=== PATIENT | male | born 1940 | race Caucasian/White ===

== ENCOUNTER 2019-05-27 09:00 | Outpatient (CLI) | payer OTHER, SELFPAY ==
--- NOTE | 2019-05-27 09:06 | USCV_ITS ---
Arnie Cuevas Age: 78 Gender: M : 1940 Exam Date: 05/27/2019 09:39 Ordering Phys: Dana Pedroza MD ([email or web address]) Technologist: Zari Yañez [place]am [place] [facility] [place]ication: ABNORMAL STRESS TEST BP: 195 / 97 HR: 97 Rhythm: Technical Quality: Adequate MEASUREMENTS (Male / Female) Normal Values 2D ECHO LV Diastolic Diameter PLAX 3.6 cm 4.2 - 5.9 / 3.9 - 5.3 cm LV Systolic Diameter PLAX 2.9 cm LV Chamber Size 4.3 cm IVS Diastolic Thickness 2.7 cm 0.6 - 1.0 / 0.6 - 0.9 cm IVS Systolic Thickness 2.4 cm LVPW Diastolic Thickness 1.2 cm 0.6 - 1.0 / 0.6 - 0.9 cm LVPW Systolic Thickness 1.8 cm RV Chamber Size 2.5 cm LVOT Diameter 2.1 cm LV Ejection Fraction 2D Teich 41.9 % LV Ejection Fraction MOD 2C 33.6 % LV Ejection Fraction 2C AL 33.8 % LA Diameter 2.7 cm LA Width 3.8 cm LA Height 5.8 cm RA Width 2.8 cm RA Height 3.9 cm Aorta at Sinotubular Diameter 3.5 cm M-MODE LV Diastolic Diameter MM 5.6 cm 4.2 - 5.9 / 3.9 - 5.3 cm LV Systolic Diameter MM 4.5 cm LV Ejection Fraction MM Teich 39.6 % IVS Diastolic Thickness MM 1.7 cm 0.6 - 1.0 / 0.6 - 0.9 cm IVS Systolic Thickness MM 1.7 cm LVPW Diastolic Thickness MM 1.1 cm 0.6 - 1.0 / 0.6 - 0.9 cm LVPW Systolic Thickness MM 1.6 cm RV Diastolic Diameter MM 2.8 cm Aortic Annulus Diameter 3.8 cm LA Ao Ratio MM 0.7 MV E Point Septal Separation 1.0 cm DOPPLER AV Peak Velocity 126.0 cm/s LVOT Peak Velocity 108.0 cm/s AV Area Cont Eq vti 3.1 cm squared AV Area Cont Eq pk 2.9 cm squared MV Area PHT 6.1 cm squared MV E' Velocity 15.0 cm/s Mitral E to MV E' Ratio 9.0 Mitral E to LV E' Lateral Ratio 7.5 Mitral E to LV E' Septal Ratio 11.2 TR Peak Velocity 256.0 cm/s TR Peak Gradient 26.3 mmHg TV Peak E Velocity 63.0 cm/s PV Peak Velocity 93.0 cm/s RV Acceleration Time 0.1 s RV Ejection Time 0.2 s RV AcT/ET 0.3 FINDINGS Left Ventricle Normal left ventricular cavity size. Moderately decreased left ventricular systolic function. Left ventricular ejection fraction is estimated at 30-35 % visually and 34% by modified biplane method. Diffuse hypokinesis. Abnormal diastolic function. Right Ventricle Normal right ventricular size and systolic function. Right ventricular systolic pressure 29 mmHg. Right Atrium Right atrium not well visualized. Left Atrium Normal left atrial size. Mitral Valve Structurally normal mitral valve. No mitral valve stenosis. Mild-moderate mitral valve regurgitation. Aortic Valve Aortic valve not well visualized. No aortic valve stenosis. Trace aortic valve regurgitation. Tricuspid Valve Tricuspid valve not well visualized. Trace tricuspid valve regurgitation. Pulmonic Valve Pulmonic valve not well visualized. No pulmonary valve stenosis. Trace pulmonary valve regurgitation. Pericardium No pericardial effusion. Aorta Normal size aortic root and proximal ascending aorta. CONCLUSIONS 1. Normal left ventricular cavity size. Moderately decreased left ventricular systolic function. Left ventricular ejection fraction is estimated at 30-35 % visually and 34% by modified biplane method. Diffuse hypokinesis. Abnormal diastolic function. 2. Normal right ventricular size and systolic function. 3. Mild-moderate mitral valve regurgitation. 5. Pulmonary artery pressure estimated at 29 mmHg. 6. No prior similar studies to compare. Dana Pedroza MD (Electronically Signed) Final Date: 31 May 2019 17:38 S
[2019-05-27] MEDS: perflutren protein-a microsphr 0.22 mg/mL SDV 3 mL IV (10:00)
== END 2019-05-27 09:01 | disposition home or self-care (01) ==
PROVIDERS: Family Provider Internal Medicine; PCP Internal Medicine; Visit Provider Internal Medicine Cardiovascular Disease
DX: I08.3 Combined rheumatic disorders of mitral, aortic and tricuspid valves (principal); R94.39 Abnormal result of other cardiovascular function study
CPT/HCPCS: C8929; Q9956

== ENCOUNTER → 2019-06-14 09:01 | Outpatient (BNVA) | payer OTHER, SELFPAY | PROVIDERS: Family Provider Internal Medicine; PCP Internal Medicine; Visit Provider Internal Medicine Cardiovascular Disease | DX: I50.9 Heart failure, unspecified (principal) | CPT/HCPCS: 80048; 83735; 83880 ==

== ENCOUNTER 2019-11-01 12:33 | Outpatient (CLI) | payer OTHER, SELFPAY ==
--- NOTE | 2019-11-01 12:30 | USCV_ITS ---
Arnie Cuevas Age: 79 Gender: M : 1940 Exam Date: 11/01/2019 12:36 Ordering Phys: Dana Pedroza MD Technologist: Hansa Frances Exam Location: [facility] – [place] Indication: chf BP: / HR: 61 Rhythm: Other Technical Quality: Technically difficult study MEASUREMENTS (Male / Female) Normal Values 2D ECHO LV Diastolic Diameter PLAX 5.2 cm 4.2 - 5.9 / 3.9 - 5.3 cm LV Systolic Diameter PLAX 2.5 cm IVS Diastolic Thickness 1.1 cm 0.6 - 1.0 / 0.6 - 0.9 cm IVS Systolic Thickness 2.3 cm LVPW Diastolic Thickness 1.0 cm 0.6 - 1.0 / 0.6 - 0.9 cm LVPW Systolic Thickness 2.6 cm LVOT Diameter 2.2 cm LV Ejection Fraction 2D Teich 83.5 % LV Ejection Fraction MOD 2C 63.9 % LV Ejection Fraction 2C AL 67.0 % LA Diameter 3.5 cm LA Width 2.9 cm LA Height 4.6 cm RA Width 2.9 cm RA Height 4.8 cm M-MODE LV Diastolic Diameter MM 6.3 cm 4.2 - 5.9 / 3.9 - 5.3 cm LV Systolic Diameter MM 5.1 cm LV Ejection Fraction MM Teich 38.2 % IVS Diastolic Thickness MM 1.2 cm 0.6 - 1.0 / 0.6 - 0.9 cm IVS Systolic Thickness MM 1.3 cm LVPW Diastolic Thickness MM 0.9 cm 0.6 - 1.0 / 0.6 - 0.9 cm LVPW Systolic Thickness MM 1.5 cm Aortic Annulus Diameter 3.6 cm LA Ao Ratio MM 1.0 MV E Point Septal Separation 1.2 cm DOPPLER AV Peak Velocity 158.0 cm/s LVOT Peak Velocity 81.0 cm/s AV Area Cont Eq vti 2.2 cm squared AV Area Cont Eq pk 1.9 cm squared MV Peak Velocity 81.0 cm/s MV Area PHT 4.4 cm squared Mitral E to A Ratio 0.6 MV E' Velocity 9.0 cm/s Mitral E to MV E' Ratio 6.2 Mitral E to LV E' Lateral Ratio 4.8 Mitral E to LV E' Septal Ratio 9.0 TR Peak Velocity 237.0 cm/s TR Peak Gradient 22.5 mmHg Right Atrial Pressure 3.0 mmHg Pulmonary Artery Systolic Pressu 25.5 mmHg PV Peak Velocity 123.0 cm/s RV Acceleration Time 0.1 s FINDINGS Left Ventricle Normal left ventricular cavity size. Moderately decreased left ventricular systolic function. Left ventricular ejection fraction is estimated at 30-35%. There is possibly severe hypokinesis of basal to mid inferior wall. Grade I diastolic dysfunction (abnormal relaxation filling pattern), normal to mildly elevated filling pressures. Right Ventricle Normal right ventricular size and systolic function. Right ventricular systolic pressure 25.5 mmHg. Right Atrium Normal right atrial size. Right atrial pressure estimated at 3 mmHg. Left Atrium Normal left atrial size. Mitral Valve Mildly thickened mitral valve. No mitral valve stenosis. Mild mitral valve regurgitation. Aortic Valve Probably thickened and calcified sclerotic tricuspid aortic valve. No aortic valve regurgitation. Tricuspid Valve Structurally normal tricuspid valve. Trace tricuspid valve regurgitation. Pulmonic Valve Pulmonic valve not well visualized. Pericardium No pericardial effusion. Aorta Normal size aortic root. Proximal ascending aorta measured at 38 mm. CONCLUSIONS 1. This is a technically very difficult study. 2. Moderately decreased left ventricular systolic function. Left ventricular ejection fraction is estimated at 30 %. There is possibly severe hypokinesis of basal to mid inferior wall. Grade I diastolic dysfunction (abnormal relaxation filling pattern), normal to mildly elevated filling pressures. 3. Mild mitral valve regurgitation. 4. Pulmonary artery pressure estimated at 26 mmHg. 5. Recommend repeat study with ultrasound enhancing agent. Dana Pedroza MD (Electronically Signed) Final Date: 04 November 2019 15:55 S
== END 2019-11-01 12:34 | disposition home or self-care (01) ==
LOC: RAD 12:33
PROVIDERS: Visit Provider Internal Medicine Cardiovascular Disease
DX: I50.9 Heart failure, unspecified (principal); I34.0 Nonrheumatic mitral (valve) insufficiency
CPT/HCPCS: 93306

== ENCOUNTER 2019-11-05 08:23 | Outpatient (CLI) | payer OTHER, SELFPAY ==
--- NOTE | 2019-11-05 | USCV_ITS ---
Arnie Cuevas Age: 79 Gender: M : 1940 Exam Date: 11/05/2019 08:31 Ordering Phys: Dana Pedroza MD ([email or web address]) Technologist: Frantz Day Exam Location: [facility] – [place] Indication: WALL MOTION EF BP: / HR: 64 Rhythm: Sinus Technical Quality: Good MEASUREMENTS (Male / Female) Normal Values 2D ECHO LV Diastolic Diameter PLAX 4.6 cm 4.2 - 5.9 / 3.9 - 5.3 cm LV Systolic Diameter PLAX 3.5 cm IVS Diastolic Thickness 1.2 cm 0.6 - 1.0 / 0.6 - 0.9 cm IVS Systolic Thickness 1.6 cm LVPW Diastolic Thickness 1.3 cm 0.6 - 1.0 / 0.6 - 0.9 cm LVPW Systolic Thickness 1.4 cm LV Ejection Fraction 2D Teich 45.2 % LV Ejection Fraction MOD 2C 38.5 % LV Ejection Fraction 2C AL 38.3 % M-MODE LV Diastolic Diameter MM 5.4 cm 4.2 - 5.9 / 3.9 - 5.3 cm LV Systolic Diameter MM 4.2 cm LV Ejection Fraction MM Teich 45.1 % IVS Diastolic Thickness MM 0.9 cm 0.6 - 1.0 / 0.6 - 0.9 cm IVS Systolic Thickness MM 2.0 cm LVPW Diastolic Thickness MM 1.5 cm 0.6 - 1.0 / 0.6 - 0.9 cm LVPW Systolic Thickness MM 1.4 cm RV Diastolic Diameter MM 2.3 cm FINDINGS Left Ventricle Right Ventricle Right Atrium Left Atrium Mitral Valve Aortic Valve Tricuspid Valve Pulmonic Valve Pericardium Aorta CONCLUSIONS 1. This is a limited study with ultrasound enhancing agent (Optison). 2. Normal left ventricular cavity size. Moderately decreased left ventricular systolic function. Left ventricular ejection fraction estimated at 30%. Moderate global hypokinesis. No evidence of left ventricular apical thrombus. 3. Frequent ventricular ectopy noted throughout the study. Dana Pedroza MD (Electronically Signed) Final Date: 05 November 2019 14:58 S
[2019-11-05] MEDS: perflutren protein-a microsphr 0.22 mg/mL SDV 3 mL IV (09:09)
== END 2019-11-05 08:24 | disposition home or self-care (01) ==
LOC: RAD 08:30
PROVIDERS: Visit Provider Internal Medicine Cardiovascular Disease
DX: I25.10 Atherosclerotic heart disease of native coronary artery without angina pectoris (principal)
CPT/HCPCS: C8924

== ENCOUNTER → 2019-11-11 12:33 | Outpatient (BNVA) | payer OTHER, SELFPAY | PROVIDERS: Visit Provider Internal Medicine Cardiovascular Disease | DX: I42.0 Dilated cardiomyopathy (principal); I11.0 Hypertensive heart disease with heart failure; I44.7 Left bundle-branch block, unspecified; E78.5 Hyperlipidemia, unspecified; Z87.891 Personal history of nicotine dependence | CPT/HCPCS: 80048; 80076; 83735; 83880 ==

== ENCOUNTER → 2019-11-30 08:58 | Outpatient (BNVA) | payer OTHER, SELFPAY | PROVIDERS: Visit Provider Internal Medicine Cardiovascular Disease | DX: I42.0 Dilated cardiomyopathy (principal) | CPT/HCPCS: 80048; 83735; 83880 ==

== ENCOUNTER → 2019-12-13 13:20 | Outpatient (BNVA) | payer OTHER, SELFPAY | PROVIDERS: Visit Provider Internal Medicine | DX: Z11.59 Encounter for screening for other viral diseases (principal) | CPT/HCPCS: 87635 ==

== ENCOUNTER 2019-12-15 15:01 | Observation (INO) | payer OTHER, SELFPAY ==
[2019-12-14 09:47] VITALS: BMI 35.9
[2019-12-15] VITALS (12 sets, daily range): BP systolic 90–145; BP diastolic 59–96; PULSE 64–80; RESP 14–22; TEMP 36.4–37.1; O2SAT 85–98
--- NOTE | 2019-12-15 | SCC_ITS ---
Procedure Done: Dual-lead AICD implantation 168.8 seconds of fluoroscopic guidance, for a cumulative dose of 70.71 mGy, was provided to Dr. Schwarz by the radiology department. C-arm images of the chest were saved for the patient's permanent record. [facility]
--- NOTE | 2019-12-15 10:49 | XRR_ITS ---
PROCEDURE INFORMATION: Exam: XR Chest, 1 View Exam date and time: 12/15/2019 10:50 AM Age: 79 years old Clinical indication: Pre-operative exam; Cardiovascular screening and respiratory screening exam; Additional info: Preop for defibrillator implantation TECHNIQUE: Imaging protocol: XR of the chest Views: Frontal portable upright view of the chest. COMPARISON: No relevant prior studies available. FINDINGS: Lungs: The lungs are clear bilaterally. The pulmonary vasculature is normal. Pleural space: No pleural effusion. No pneumothorax. Heart/Mediastinum: Borderline cardiomegaly. Vasculature: Mild aortic arch atherosclerotic calcification without ectasia. Bones/joints: Right lateral vertebral body marginal osteophytes are noted at multiple thoracic spinal levels. XR/XR chest 1V portable [id number] IMPRESSION: No acute cardiopulmonary abnormality identified.
--- NOTE | 2019-12-15 11:48 | ECG_ITS ---
[facility] Test Date: 2019-12-15 Pat Name: Arnie Cuevas Department: Room: Gender: Male Education Department Registrar: : 1940 Requested By: Javi Schwarz Order Number: [id number] Chinchilla MD: Kevin Renteria M.D. Measurements Intervals [place] Rate: 73 P: 21 TX: 235 QRS: -29 QRSD: 122 T: 15 QT: 390 QTc: 430 Interpretive Statements SINUS RHYTHM WITH FIRST DEGREE AV BLOCK WITH FREQUENT VENTRICULAR PREMATURE COMPLEXES MODERATE INTRAVENTRICULAR CONDUCTION DELAY [105+ ms QRS DURATION, 80+ ms Q/S IN V1/V2, NO Q AND 60+ ms R IN I/aVL/V5/V6] No previous ECG available for comparison Electronically Signed On 12-16-2019 0:28:32 CDT by Kevin Renteria M.D. [id number]
--- NOTE | 2019-12-15 11:49 | ANES.PREANE2 ---
Pre-Anesthetic Assessment Pre-Anesthetic Assessment: Height/Weight: Height 1.78 m Weight 113.398 kg Proposed Procedure: Operation Date: 12/15/19 12:20 Proposed Procedures p Defibrillator Placement(Not Applicable) - Javi Schwarz MD Last intake: Intake Last Liquid Date 12/14/19 Last Liquid Time 23:30 Last Solid Date 12/14/19 Last Solid Time 18:30 Social: Social History: Tobacco (quit) and No alcohol Exam: Pre-Anes Outpt Exam: alert, oriented x 3 and regular rate & rhythm Additional Exam Findings (including area of procedure): bilat wheezes Airway: Submandibular: WNL Cervical ROM: WNL MP: 2 Dentition: Other (very poor dentation) History/ROS: No significant history except as noted Pulmonary: Pulmonary: RIVERA, Sleep apnea and SOB CV/HEM: CV/HEM: CHF (cardiomyopathy) and HTN : : None reported Hepatic: Hepatic: None reported GI: GI: GERD Metabolic: Metabolic: Hyperlipidemia and Morbid obesity Musc/skel: Musc/skel: OA/DJD Neuropsych: Neuropsych: None reported Anesthetic Plan: ASA status: 4 Anesthesia: Anesthesia Evaluation and MAC Risk of > 500 ml blood loss (7ml/kg in children): No PFSH Anesthesia PFSH: Medical History Abnormal stress test Cardiomyopathy Dyslipidemia Hypertriglyceridemia LBBB (left bundle branch block) KELVIN (obstructive sleep apnea) SOB (shortness of breath) Family History Mother History of cardiac disorders unknown Social History Quit status (tobacco): has quit using tobacco Data Anesthesia Cardiac Studies: Echocardiogram 11/05/19
[2019-12-15 11:57] LABS: Basophils # 0.1 10^3/uL (0.0-0.1); Basophils % 0.8 %; Eosinophils # 0.2 10^3/uL (0.0-0.8); Hematocrit 47.3 % (42.0-52.0); Lymphocytes # 2.5 10^3/uL (0.8-4.8); Lymphocytes % 27.8 %; Mean Corpuscular HGB Conc 31.7 g/dL (30.0-36.0); Mean Corpuscular Hemoglobin 28.1 pg (28.0-34.0); Mean Corpuscular Volume 88.7 fL (80-94); Mean Platelet Volume 11.4 fL (7.4-10.4); Monocytes # 0.6 10^3/uL (0.2-0.9); Monocytes % 6.2 %; Neutrophils # 5.53 10^3/uL (1.8-7.7); Neutrophils % 62.9 %; Nucleated Red Blood Cells % 0 %; Platelet Count 172 10^3/cmm (130-400); Red Blood Count 5.33 10^6/uL (4.1-5.3); Red Cell Distribution Width 14.2 % (12.1-15.1); White Blood Count 8.8 10^3/uL (4.0-10.0)
--- NOTE | 2019-12-15 12:02 | SC_ITS ---
WS: [id number] INTRAOPERATIVE TECHNIQUE: 3 Spot fluoroscopic images for intraoperative purposes. FLUOROSCOPY TIME: 168.8 seconds CLINICAL INFORMATION: intra-op COMPARISON: None. FINDINGS: AICD. No visualized pneumothorax. SC/C-arm FL for Pacemaker IMPRESSION: Images obtained for intraoperative purposes.
[2019-12-15 12:22] LABS: Blood Urea Nitrogen 22 mg/dL (8-23); Calcium 10.3 mg/dL (8.5-10.5); Carbon Dioxide 26 mmol/L (22-29); Chloride 100 mmol/L (98-107); Glucose 91 mg/dL (65-115); Osmolality Calculated 282 mOsm/kg (285-295); Sodium 138 mmol/L (136-145)
[2019-12-15 12:29] LABS: Anion Gap 16.8 (5-19); Potassium 4.8 mmol/L (3.5-5.1)
[2019-12-15] MEDS: sodium chloride 0.9% 1,000 ML 30 ML IV (12:30)
--- NOTE | 2019-12-15 12:44 | PM.HP ---
Providers/Chief Complaint Admitting Physician: Dr. Schwarz Chief Complaint: Cardiomyopathy History of Present Illness Arnie Cuevas is a 79 year old male who is being direct admitted for overnight stay after planned dual-lead AICD implantation today. He has been cared for by Dr. Pedroza from cardiology and is noted have a cardiomyopathy with ejection fraction of 30%. He has an interventricular conduction delay and first-degree AV block on EKG. 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 He also demonstrates an incomplete left bundle branch block. He is noted increasing dyspnea and fatigue over the past 6 months which occurred fairly quickly. No chest pain. No syncope. I have conferred with Dr. Pedroza. Review of Systems Eyes: Denies: change in vision Card: Reports: dyspnea on exertion; Denies: chest pain, palpitations or leg pain with exertion Resp: Reports: dyspnea GI: Denies: abdominal pain Musc: Reports: back pain Neuro: Denies: frequent falls or dizziness Medications/Allergies Home Medications Medication Instructions Recorded Confirmed Last Taken Type atorvastatin 20 mg tablet 20 mg PO DAILY tab 05/31/19 12/15/19 12/14/19 History tamsulosin 0.4 mg capsule 0.4 mg PO DAILY cap 05/31/19 12/15/19 12/14/19 History allopurinol 100 mg tablet 100 mg PO DAILY tab 06/01/19 12/15/19 12/14/19 History aspirin 81 mg tablet,delayed 81 mg PO DAILY tab 06/01/19 12/15/19 12/09/19 06:00 History release losartan 50 mg tablet 50 mg PO DAILY #90 tab 06/01/19 12/15/19 12/13/19 Rx carvedilol 6.25 mg tablet 6.25 mg PO .COMPLEX #270 tab 11/11/19 12/15/19 12/15/19 Rx 0630 furosemide 20 mg tablet 20 mg PO DAILY #30 tab 11/25/19 12/15/19 12/14/19 Rx magnesium L-lactate 84 mg 84 mg PO DAILY #30 tab 11/25/19 12/15/19 12/14/19 Rx tablet,extended release omeprazole magnesium [Prilosec OTC] 20 mg PO DAILY 12/14/19 12/15/19 12/14/19 History Allergies Allergy/AdvReac Type Severity Reaction Status Date / Time No Known Allergies Allergy Verified 12/15/19 10:42 PFSH Acute PFSH: Medical History Abnormal stress test Cardiomyopathy Dyslipidemia Hypertriglyceridemia LBBB (left bundle branch block) KELVIN (obstructive sleep apnea) SOB (shortness of breath) Family History Mother History of cardiac disorders unknown Social History Quit status (tobacco): has quit using tobacco Vitals/I&O/Wt Last Vital Signs Temp 97.6 F 12/15/19 11:05 Pulse 76 12/15/19 11:05 Resp 18 12/15/19 11:05 BP 140/83 12/15/19 11:05 Pulse Ox 97 12/15/19 11:05 Weight last 48 hrs Weight 250 lb Physical Exam HENMT: COMMON NORMALS: normocephalic Neck/C-Spine: COMMON NORMALS: no lymphadenopathy and No carotid bruits; negative for full ROM Chest: COMMONS NORMALS: normal inspection of the chest and normal palpation of entire chest wall Resp: COMMON NORMALS: normal respiratory effort and clear to auscultation bilaterally EFFORT & INSPECTION: Yes able to speak in complete sentences and Yes symmetric chest movement Extremity: COMMON NORMALS: normal to inspection and capillary refill normal GENERAL: Yes edema (Trace of edema in the lower extremities.) Neuro: COMMON NORMALS: patient oriented x3, no focal motor deficits and no sensory deficits noted Psych: COMMON NORMALS: mental status grossly normal SPEECH: Yes normal speech MOOD & AFFECT: Yes euthymic mood Data : 12/15/19 11:27 12/15/19 11:27 A&P Assessment and plan (1) Cardiomyopathy: 79-year-old gentleman with cardiomyopathy and ejection fraction of 30% with interventricular conduction delay, first-degree AV block, and incomplete left bundle branch block. We will plan for dual chamber AICD implantation. Details the risk of procedure were carefully and frankly discussed. Particular risks of major bleeding, infection, pneumothorax requiring chest tube, migration of the leads requiring revision, postop pain, and need for continued surveillance were carefully and frankly discussed. He and his wished to proceed. Status: Acute Qualifiers: Cardiomyopathy type: dilated Qualified Code(s): I42.0 - Dilated cardiomyopathy Attestations Medical Necessity Statement*: Cardiomyopathy Coding Level of Care Code Acute Residential Instructor for [facility] Fwd Diagnoses Cardiomyopathy I42.0 Cardiomyopathy type: dilated
[2019-12-15 13:16] LABS: Add Urine Microscopic? NO
[2019-12-15 13:28] LABS: Bilirubin Urine Neg (NEGATIVE); Blood Urine Neg (Negative); Glucose Urine UA Norm (Normal); Ketones Urine Negative (Negative); Leukocyte Esterase Urine Negative (Negative); Nitrate Urine Negative (Negative); Protein Urine Neg (Negative); Urine Appearance Clear (CLEAR); Urine Color Yellow (Yellow); Urobilinogen Urine Neg (Negative); pH Urine 5 (5-7)
[2019-12-15] MEDS: ceFAZolin 1,000 mg SDV 1000 MG IRRIGATION (13:39)
--- NOTE | 2019-12-15 14:57 | SUR.PHASEI ---
1454 PATIENT TO PACU FROM OR. RR EVEN AND UNLABORED. SPO2 98% ON SIMPLE MASK AT 8L. PRESSURE DRESSING TO LEFT CHEST WITH SHOULDER IMMOBILIZER IN PLACE. PATIENT DENIES PAIN.
--- NOTE | 2019-12-15 15:04 | XR_ITS ---
WS: [id number] CHEST XRAY TECHNIQUE: Portable chest. CLINICAL INFORMATION: DEF PLACEMENT COMPARISON: December 15, 2019 FINDINGS: Heart: Cardiomegaly. AICD placement is new from previous. No pneumothorax. Lungs: Mild pulmonary vascular congestion. No focal infiltrate. Bones: Normal visualized bony structures. XR/XR chest 1V portable [id number] IMPRESSION: Interval placement of AICD. No pneumothorax.
--- NOTE | 2019-12-15 15:08 | P.OP_ITS ---
Operative Report Date of procedure: December 15, 2019 Pre-op Diagnosis: Cardiomyopathy Post-op diagnosis: same Procedure Done: Dual-lead AICD implantation Pathology: none sent Anesthesia: MAC and Local (13 cc 1% lidocaine infiltrated locally) Complications: None Condition: stable Disposition: PACU Brief History: 79-year-old gentleman with ischemic cardiomyopathy, first-degree AV block and intraventricular conduction delay. Dr. Pedroza has recommended AICD implantation due to his substantial cardiomyopathy as well as electrophysiology disturbance. Rationale for this was carefully discussed with Mr. Cuevas and his . Details risk of the procedure were carefully and frankly discussed. Proper consents have been reviewed and signed. Procedure: Procedure: Mr. Cuevas was taken to the OR suite and placed in the supine position over a shoulder roll. He received conscious sedation with continuous anesthesia monitoring. His entire chest was sterilely prepped and draped. 1% lidocaine was infiltrated in the left subclavicular region. While in Trendelenburg position, utilizing modified seldinger technique, 2 guidewires were placed in the left subclavian vein. This was confirmed in position by fluoroscopy. Next, after infiltration with lidocaine, a subcutaneous pocket was created beginning from the exit point of the guidewire and extending laterally and inferiorly. Cautery was utilized to create the pocket just above the pectoralis musculature. Hemostasis was confirmed. An antibiotic-soaked sponge was placed in the wound. A dilator and tear-away sheath was placed over the first guidewire and advanced under fluoroscopy. Guidewire and dilator were removed. Next using a combination of curved and straight stylettes, the right ventricular defibrillating/pacing lead was placed in position by fluoroscopy. The distal screw was extended. Interrogation was then performed confirming appropriate parameters. The tear-away sheath was then removed and the ventricular lead was sewn to the floor of the subcutaneous pocket. In a similar fashion dilator and tear-away sheath was placed over the 2nd guide wire and advanced under fluoroscopy. Guidewire and dilator were removed. Straight and curved stylettes were used to position the right atrial lead with fluoroscopy. Distal screw was extended. Interrogation was then performed. Tear-away sheath was then removed. Atrial lead was secured to the floor of the subcutaneous pocket. Pocket was irrigated with antibiotic solution and hemostasis again confirmed. AICD generator was brought into the field, and after confirmation of hemostasis in the subcutaneous pocket, the leads were connected to the generator with appropriate capture. The entire system was interrogated by fluoroscopy. Leads and generator were secured in the pocket. Sponge and needle count was correct. The wound was then closed in 2 layers of 3-0 Vicryl suture. Skin was reapproximated in a subcuticular manner with 4-0 Monocryl suture. A pressure dressing was applied. The left arm was placed in a sling. Mr. Cuevas had equal breath sounds bilaterally. He was then transferred to the PACU, where chest x- ray was performed revealing appropriate lead positioning and no evidence for pneumothorax. We did career development counselor with his by phone at the completion of the procedure. He will be observed overnight in cardiac stepdown unit. Following are the specifics of this system: Right ventricular lead is 62 cm and model 6947M. Serial number [id number] Right atrial lead is 52 cm and is model 5076. Serial number [id number]. Ventricular lead had sensing of 10.8 mV with an impedance of 513 ohms. Threshold was 0.75 V Atrial lead had sensing of 1.8 mV with an impedance of 456 ohms. Threshold was 1.5 V. Go Long Wireless Generator: Model #[id number] Serial #[id number]
--- NOTE | 2019-12-15 15:22 | SUR.PHASEI ---
1511 PATIENT TO CSU. DENIES PAIN. A/OX3. RR EVEN AND UNLABORED. DRESSING TO LEFT CHEST, CDI.
[2019-12-15] MEDS: sodium chloride 0.9% 1,000 ML 75 ML IV (15:56)
[2019-12-15] MEDS: HYDROcodone-acetaminophen 5-325 mg Tablet 1 TAB PO (18:42)
[2019-12-16 00:20] VITALS: BP 140/71; PULSE 67; RESP 16; TEMP 37.3; O2SAT 95
[2019-12-16 02:19] VITALS: PULSE 68; O2SAT 97
[2019-12-16] MEDS: HYDROcodone-acetaminophen 5-325 mg Tablet 1 TAB PO (02:28)
[2019-12-16 04:13] VITALS: BP 123/73; PULSE 70; RESP 16; TEMP 36.9; O2SAT 93
[2019-12-16] MEDS: sodium chloride 0.9% 1,000 ML 75 ML IV (04:44)
--- NOTE | 2019-12-16 06:00 | ECG_ITS ---
[facility] Test Date: 2019-12-16 Pat Name: Arnie Cuevas Department: Room: 107 Gender: Male Costume Shop Coordinator: steve TADEOB: 1940 Requested By: Javi Schwarz Order Number: [id number] Renée MD: Gabriel Marquis M.D. Measurements Intervals [place] Rate: 62 P: 44 UT: 236 QRS: -25 QRSD: 122 T: 27 QT: 434 QTc: 442 Interpretive Statements SINUS RHYTHM WITH FIRST DEGREE AV BLOCK WITH OCCASIONAL VENTRICULAR PREMATURE COMPLEXES Occasional atrial pacing MODERATE INTRAVENTRICULAR CONDUCTION DELAY [105+ ms QRS DURATION, 80+ ms Q/S IN V1/V2, NO Q AND 60+ ms R IN I/aVL/V5/V6] NONSPECIFIC T-WAVE ABNORMALITY Compared to ECG 12/15/2019 11:52:09 Ventricular premature complex(es) now present T-wave abnormality now present Electronically Signed On 12-17-2019 16:09:35 CDT by Gabriel Marquis M.D. [id number]
[2019-12-16 07:07] VITALS: BP 160/85; PULSE 67; RESP 20; TEMP 36.9; O2SAT 94
--- NOTE | 2019-12-16 08:07 | PC.NURSE ---
NOTIFIED DR. AGUILAR THAT PATIENT'S DEFIBRILLATOR INTERROGATION WAS COMPLETE AND THE DEFIBRILLATOR IS FUNCTIONING APPROPRIATELY.
[2019-12-16] MEDS: pantoprazole DR 40 mg Tablet PO (08:50)
--- NOTE | 2019-12-16 09:56 | PM.DCS ---
Discharge Providers Date of Admission: 12/15/19 15:01 Date of Discharge: December 16, 2019 Attending Provider at Admission: Javi Schwarz MD Attending Provider at Discharge: Javi Schwarz MD Primary Care Provider: Genaro Potts MD Diagnoses at Discharge Discharge Diagnosis (1) Cardiomyopathy: Status: Acute Qualifiers: Cardiomyopathy type: dilated Qualified Code(s): I42.0 - Dilated cardiomyopathy Reason for Visit Reason for Visit: Cardiomyopathy Hospital Course Hospital Course: Mr. Cuevas is a 79-year-old gentleman with documented cardiomyopathy with ejection fraction of 30%. He also has a intermittent first-degree AV block and interventricular conduction delay. AICD implantation is been recommended due to his profound and fixed cardiomyopathy. He was electively admitted on December 14 underwent dual-lead AICD implantation. Postoperatively, he convalesced in the cardiac stepdown unit where he remained stable. Computer interrogation of his device this morning revealed appropriate functioning. Incision line is clean and dry. Minimal swelling. Minimal discomfort. No ecchymosis. He is eager for discharge home. He will be discharged to home today in stable condition. He will follow-up in the pacemaker clinic in 1 week. Physical Exam Chest: COMMONS NORMALS: normal inspection of the chest (Left chest wall incision line is clean and dry. Minimal tenderness. No ecchymosis or evidence for fluid collection.) Discharge Data Data Completed and Pending: Completed Studies During Hospitalization Category Date Time Status XR chest 1V [facility] [id number] Routine Exams 12/15/19 10:49 Completed XR chest 1V [facility] [id number] Stat Exams 12/15/19 15:04 Completed Pending at discharge Category Date Time Status [facility] SARS-CoV-2 RNA Routine Lab 12/15/19 10:49 Ordered Retype for Chad s ABO/Rh Routine Lab 12/15/19 13:53 Ordered Labs from last 24 hours 12/15/19 12/15/19 12/15/19 12:55 12:24 11:50 WBC RBC Hgb Hct MCV MCH MCHC RDW Plt Count MPV Neut % (Auto) Lymph % (Auto) [place] % (Auto) Eos % (Auto) Baso % (Auto) Neut # (Auto) Lymph # (Auto) [place] # (Auto) Eos # (Auto) Baso # (Auto) Nucleated RBC % (a uto) Nucleated RBCs # PT 12.40 INR 0.90 Sodium Potassium Chloride Carbon Dioxide Anion Gap BUN Creatinine GFR Calculation Glucose Calculated Osmolal ity Calcium Urine Color Yellow Urine Appearance Clear Urine pH 5 Ur Specific Gravit y 1.020 Urine Protein Neg Urine Glucose (UA) Norm Urine Ketones Negative Urine Blood Neg Urine Nitrate Negative Urine Bilirubin Neg Urine Urobilinogen Neg Ur Leukocyte Dorothy ase Negative Blood Type O Positive Rho(D) Type Positive Antibody Screen Negative 12/15/19 12/15/19 12/15/19 11:27 11:27 11:27 WBC 8.8 RBC 5.33 H Hgb 15.0 Hct 47.3 MCV 88.7 MCH 28.1 MCHC 31.7 RDW 14.2 Plt Count 172 MPV 11.4 H Neut % (Auto) 62.9 Lymph % (Auto) 27.8 [place] % (Auto) 6.2 Eos % (Auto) 2.0 Baso % (Auto) 0.8 Neut # (Auto) 5.53 Lymph # (Auto) 2.5 [place] # (Auto) 0.6 Eos # (Auto) 0.2 Baso # (Auto) 0.1 Nucleated RBC % (a uto) 0 Nucleated RBCs # 0.0 PT Cancelled INR Cancelled Sodium 138 Potassium 4.8 Chloride 100 Carbon Dioxide 26 Anion Gap 16.8 BUN 22 Creatinine 1.3 H GFR Calculation Not Reportable Glucose 91 Calculated Osmolal ity 282 L Calcium 10.3 Urine Color Urine Appearance Urine pH Ur Specific Gravit y Urine Protein Urine Glucose (UA) Urine Ketones Urine Blood Urine Nitrate Urine Bilirubin Urine Urobilinogen Ur Leukocyte Dorothy ase Blood Type Rho(D) Type Antibody Screen Vitals: Last Vital Signs Temp 98.4 F 12/16/19 07:07 Pulse 67 12/16/19 07:07 Resp 20 H 12/16/19 07:07 BP 160/85 12/16/19 07:07 Pulse Ox 94 12/16/19 07:07 Discharge Plan Discharge Patient Disposition: Home Condition: Stable Prescriptions: New hydrocodone-acetaminophen 5-325 mg Tablet 1 tab PO Q6H PRN (Reason: Moderate Pain) Qty: 10 RF: 0 Continued aspirin [Adult Aspirin Regimen] 81 mg tablet,delayed release (DR/EC) 81 mg PO DAILY RF: 0 allopurinol 100 mg tablet 100 mg PO DAILY RF: 0 losartan 50 mg tablet 50 mg PO DAILY Qty: 90 RF: 2 carvedilol [Coreg] 6.25 mg tablet 6.25 mg PO .COMPLEX Qty: 270 RF: 2 atorvastatin 20 mg tablet 20 mg PO DAILY RF: 0 tamsulosin 0.4 mg capsule 0.4 mg PO DAILY RF: 0 furosemide 20 mg tablet 20 mg PO DAILY Qty: 30 RF: 2 magnesium L-lactate 84 mg tablet extended release 84 mg PO DAILY Qty: 30 RF: 3 omeprazole magnesium [Prilosec OTC] 20 mg Tablet,Delayed Release (Dr/Ec) 20 mg PO DAILY RF: 0 Discharge Orders: Discharge Order (Routine); Ordered 12/16/19 Ordered By: Javi Schwarz Referrals: [facility] [Provider Group] - 12/24/19 (Pacemaker clinic) Patient Instructions: Hydrocodone/Acetaminophen (By mouth), Implantable Cardioverter Defibrillator (DC) Activity Restrictions/Additional Instructions: May remove bandage in 2 days May begin daily showers in 2 days No swimming or tub baths x 2 weeks No ointments on incision Report drainage, redness, heat, increased pain, or swelling to clinic Do not raise left hand above eye level for 5 days Discharge Attestations Time Spent in Discharge Care*: less than 30 min Specific Discharge Activities: Specific discharge activities: educating patient, educating and/or supporting family/caregiver, documenting/other paperwork and evaluating patient/reviewing data Status at Discharge: Cognitive status at discharge: cognitively intact, Behavioral status at discharge: cooperative, Functional status at discharge: independent ambulation Overall status at discharge: patient is back to baseline Quality Metrics Clinical Quality Measures During this hospital stay, did patient experience: None Coding Level of Care Code Acute Motor Checker for Yunior Payton Diagnoses Cardiomyopathy I42.0 Cardiomyopathy type: dilated
[2019-12-16 09:57] VITALS: BP 160/85; PULSE 67; RESP 20; TEMP 36.9; O2SAT 94
--- NOTE | 2019-12-16 10:57 | PC.CHAP ---
Pastoral Care Encounter/Spiritual Assessment Type of Contact [] Declined employee health nurse visit [] Patient/Family/Request visit [] Outpatient visit [] Follow-up visit [] Physician referral [] Code/Alert [x] Routine visit [] Staff referral [] Actively dying [] Patient sleeping [] Family support [] [] Out of room [] Palliative care [] [] Receiving care in room [] Pre-surgical visit [] Trauma [] Long length of stay [] ICU visit [] Other: Relational/Emotional Strength [x] Patient feels connected with others/family/visitors/staff [] Distress [] Loneliness/isolation [] Abandonment Spirituality of Patient [x] Person of Marielena [] Attends Restorationist of their Marielena [] Believes in Prayer [] Reads Bible or Mu-Ism materials [x] There are Spiritual issues to be addressed Slubber Operator Interventions [x] Prayer [x] Active listening [x] Non-anxious presence [] Spiritual/emotional support [] Crisis/trauma care [] Spiritual counseling [] Bereavement support [] Provided bereavement packet [] Provided Bible/devotional materials [] Provided toy/stuffed animal, coloring book to patient or family member [] Provided Communion [] Anointing/[place] [] Salvation [x] Completed spiritual assessment [] Other: Impact on Illness or Injury [] Angry [] Fearful [] Anxious [] Often cries [] Exhaustion [] Unable to work [] Unable to attend sabianist [] Unable to walk/stand [] Unable to read [] Unable to drive [] Unable to eat/drink [] Unable to sleep [] Unable to be with family [] Patient intubated [x] Other: Summary Patient is a professed believer but does not attend fellowship sabianist. Time spent with patient 5 minutes
== END 2019-12-16 11:19 | disposition home or self-care (01) ==
LOC: CSU 12-16 06:54
PROVIDERS: Admitting Provider Thoracic Surgery (Cardiothoracic Vascular Surgery); Family Provider Internal Medicine; PCP Internal Medicine; Visit Provider Thoracic Surgery (Cardiothoracic Vascular Surgery)
PROC: 0JH608Z Insertion of Defibrillator Generator into Chest Subcutaneous Tissue and Fascia, Open Approach (ICD-10-PCS; CPT 33249; principal; 2019-12-15 12:10)
DX: I42.0 Dilated cardiomyopathy (principal); I44.0 Atrioventricular block, first degree; I44.7 Left bundle-branch block, unspecified; Z79.82 Long term (current) use of aspirin; E78.5 Hyperlipidemia, unspecified; G47.33 Obstructive sleep apnea (adult) (pediatric); Z87.891 Personal history of nicotine dependence; G47.30 Sleep apnea, unspecified; I11.0 Hypertensive heart disease with heart failure; I50.9 Heart failure, unspecified; E66.01 Morbid (severe) obesity due to excess calories; Z68.35 Body mass index [BMI] 35.0-35.9, adult; M19.90 Unspecified osteoarthritis, unspecified site
CPT/HCPCS: 33249; 12345; 71045; 76000; 80048; 81003; 85025; 85610; 86850; 86900; 93005; 96361; 96365; 97165; C1721; C1777; C1779; G0378; J0690; J2704; J3010; J7030

== ENCOUNTER → 2020-09-05 09:05 | Outpatient (BNVA) | payer OTHER, SELFPAY | PROVIDERS: Family Provider Internal Medicine; PCP Family Medicine; Visit Provider Internal Medicine Cardiovascular Disease | DX: I42.0 Dilated cardiomyopathy (principal) | CPT/HCPCS: 80053; 83735; 83880 ==

== ENCOUNTER → 2021-08-22 09:57 | Outpatient (BNVA) | payer OTHER, SELFPAY | PROVIDERS: Family Provider Internal Medicine; PCP Family Medicine; Visit Provider Otolaryngology | DX: K13.79 Other lesions of oral mucosa (principal); Z87.891 Personal history of nicotine dependence | CPT/HCPCS: 99202 ==

== ENCOUNTER → 2021-08-23 10:45 | Outpatient (BNVA) | payer OTHER, SELFPAY | PROVIDERS: Family Provider Internal Medicine; PCP Family Medicine; Visit Provider Internal Medicine Cardiovascular Disease | DX: I42.0 Dilated cardiomyopathy (principal); I10 Essential (primary) hypertension; Z95.810 Presence of automatic (implantable) cardiac defibrillator; G47.33 Obstructive sleep apnea (adult) (pediatric); E78.5 Hyperlipidemia, unspecified; Z87.891 Personal history of nicotine dependence; Z79.82 Long term (current) use of aspirin | CPT/HCPCS: 99214 ==

== ENCOUNTER 2021-09-28 07:33 | Outpatient (CLI) | payer OTHER, SELFPAY ==
--- NOTE | 2021-09-28 07:44 | US_ITS ---
WS: [id number] RENAL ULTRASOUND HISTORY: STAGE 3A CHRONIC KIDNEY DZ COMPARISON: None available. TECHNIQUE: 2-D and color Doppler imaging of the kidney submitted. Right kidney: 11.2 cm x 5.4 cm x 3.8 cm. Normal echogenicity with no hydronephrosis or mass. Left kidney: 10.9 cm x 5.8 cm x 4.0 cm. Normal size kidney with normal echogenicity. No cortical thinning. There is an exophytic cyst from th e mid kidney extending lateral measuring 1.7 x 2.0 x 1.9 cm. No solid mass. No obstruction. Aorta: Normal. Urinary Bladder: Normal distention. US/US renal BI* [id number] IMPRESSION: 1. Normal size kidneys with no hydronephrosis or cortical thinning. 2. 2.0 cm cyst exophytic from the mid LEFT kidney.
== END 2021-09-28 07:34 | disposition home or self-care (01) ==
LOC: RAD 07:35
PROVIDERS: PCP Family Medicine; Visit Provider Internal Medicine Nephrology
DX: N18.31 Chronic kidney disease, stage 3a (principal); N28.1 Cyst of kidney, acquired
CPT/HCPCS: 76770

== ENCOUNTER → 2022-03-08 09:05 | Outpatient (BNVA) | payer OTHER, SELFPAY | PROVIDERS: PCP Family Medicine; Visit Provider Internal Medicine Cardiovascular Disease | DX: I42.0 Dilated cardiomyopathy (principal); Z95.810 Presence of automatic (implantable) cardiac defibrillator; E78.5 Hyperlipidemia, unspecified; I10 Essential (primary) hypertension; Z87.891 Personal history of nicotine dependence | CPT/HCPCS: 93283; 99214 ==

== ENCOUNTER → 2022-03-08 09:05 | Outpatient (BNVA) | payer OTHER, SELFPAY | PROVIDERS: PCP Family Medicine; Visit Provider Internal Medicine Cardiovascular Disease | DX: Z53.9 Procedure and treatment not carried out, unspecified reason (principal) ==

== ENCOUNTER 2022-03-25 09:41 | Outpatient (CLI) | payer OTHER, SELFPAY ==
[2022-03-25 10:52] LABS: Anion Gap 13.4 (5-19); Blood Urea Nitrogen 24 mg/dL (8-23); Calcium 9.6 mg/dL (8.5-10.5); Carbon Dioxide 27 mmol/L (22-29); Chloride 99 mmol/L (98-107); Glucose 89 mg/dL (65-115); Magnesium 1.8 mg/dL (1.7-2.3); NT Pro B Type Natriuretic Pept 65 pg/mL (0-450); Osmolality Calculated 284 mOsm/kg (285-295); Potassium 4.4 mmol/L (3.5-5.1); Sodium 135 mmol/L (136-145)
== END 2022-03-25 09:42 | disposition home or self-care (01) ==
LOC: LAB 09:44
PROVIDERS: PCP Family Medicine; Visit Provider Internal Medicine Cardiovascular Disease
DX: E78.5 Hyperlipidemia, unspecified (principal); I42.9 Cardiomyopathy, unspecified; I44.7 Left bundle-branch block, unspecified
CPT/HCPCS: 80048; 83735; 83880

== ENCOUNTER → 2022-06-05 14:30 | Outpatient (BNVA) | payer OTHER, SELFPAY | PROVIDERS: PCP Family Medicine; Referring Provider Family Medicine; Visit Provider Podiatrist Foot & Ankle Surgery | DX: I73.9 Peripheral vascular disease, unspecified (principal); M20.41 Other hammer toe(s) (acquired), right foot; B35.1 Tinea unguium; R60.9 Edema, unspecified | CPT/HCPCS: 11721; 73630; 99203 ==

== ENCOUNTER → 2022-07-23 09:23 | Outpatient (BNVA) | payer OTHER, SELFPAY | PROVIDERS: PCP Family Medicine; Visit Provider Internal Medicine Cardiovascular Disease | DX: Z45.02 Encounter for adjustment and management of automatic implantable cardiac defibrillator (principal) | CPT/HCPCS: 93296 ==

== ENCOUNTER → 2022-08-05 13:02 | Outpatient (BNVA) | payer OTHER, SELFPAY | PROVIDERS: PCP Family Medicine; Visit Provider Podiatrist Foot & Ankle Surgery | DX: I73.9 Peripheral vascular disease, unspecified (principal); B35.1 Tinea unguium; R60.9 Edema, unspecified | CPT/HCPCS: 11721 ==

== ENCOUNTER → 2022-09-10 10:25 | Outpatient (BNVA) | payer OTHER, SELFPAY | PROVIDERS: PCP Family Medicine; Visit Provider Specialist | DX: I42.0 Dilated cardiomyopathy (principal); E78.5 Hyperlipidemia, unspecified; Z95.810 Presence of automatic (implantable) cardiac defibrillator; I42.9 Cardiomyopathy, unspecified; Z87.891 Personal history of nicotine dependence ==

== ENCOUNTER → 2022-10-21 14:26 | Outpatient (BNVA) | payer OTHER, SELFPAY | PROVIDERS: PCP Family Medicine; Visit Provider Podiatrist Foot & Ankle Surgery | DX: I73.9 Peripheral vascular disease, unspecified (principal); B35.1 Tinea unguium; R60.9 Edema, unspecified | CPT/HCPCS: 11721 ==

== ENCOUNTER 2022-10-30 12:31 | Outpatient (CLI) | payer OTHER, SELFPAY ==
--- NOTE | 2022-10-30 12:40 | USCV_ITS ---
Arnie Cuevas Age: 82 Gender: M : 1940 Exam Date: 10/30/2022 13:14 Ordering Phys: Sarah Guzman MD ([email or web address]) Technologist: DAMARIS Exam Location: [facility] – [place] Indication: SHORTNESS OF BREATH, CARDIOMYOPATHY BP: 126 / 76 HR: 86 Rhythm: Sinus Technical Quality: Adequate MEASUREMENTS (Male / Female) Normal Values 2D ECHO LVOT Diameter 2.0 cm LV Ejection Fraction MOD 2C 39.1 % LV Ejection Fraction 2C AL 40.0 % LA Diameter 3.4 cm LA Width 3.8 cm LA Height 4.9 cm RA Width 3.4 cm RA Height 4.4 cm Aorta at Sinotubular Diameter 2.8 cm IVC Diameter 1.9 cm M-MODE Aortic Annulus Diameter 3.8 cm LA Ao Ratio MM 0.9 MV E Point Septal Separation 1.4 cm DOPPLER AV Peak Velocity 123.0 cm/s LVOT Peak Velocity 94.0 cm/s AV Area Cont Eq vti 3.3 cm squared AV Area Cont Eq pk 2.5 cm squared MV Peak Velocity 95.0 cm/s MV Area PHT 5.6 cm squared Mitral E to A Ratio 0.6 MV E' Velocity 26.0 cm/s Mitral E to MV E' Ratio 6.4 Mitral E to LV E' Lateral Ratio 5.6 Mitral E to LV E' Septal Ratio 7.6 TR Peak Velocity 158.4 cm/s TR Peak Gradient 10.0 mmHg TR Mean Velocity 111.9 cm/s TR Mean Gradient 5.9 mmHg TR Velocity Time Integral 41.5 cm TV Peak E Velocity 55.0 cm/s Right Atrial Pressure 3.0 mmHg Pulmonary Artery Systolic Pressu 13.0 mmHg PV Peak Velocity 105.0 cm/s RV Acceleration Time 0.1 s RV Ejection Time 0.3 s RV AcT/ET 0.4 FINDINGS Left Ventricle Normal left ventricular cavity size. Moderately decreased left ventricular systolic function. Left ventricular ejection fraction is estimated at 35-40 %. Global hypokinesis with abnormal septal motion. Right Ventricle Normal right ventricular size and systolic function. Catheter/pacemaker wire visualized in the right ventricle. Right Atrium Mildly increased right atrial size. Left Atrium Mildly increased left atrial size. Mitral Valve Thickened mitral valve. No mitral valve stenosis. No mitral valve stenosis. Trace mitral valve regurgitation. Aortic Valve Aortic valve not well visualized. No aortic valve stenosis. No aortic valve regurgitation. Tricuspid Valve Structurally normal tricuspid valve. No tricuspid valve stenosis. Trace to mild tricuspid valve regurgitation. Pulmonic Valve Pulmonic valve not well visualized. Pericardium No pericardial effusion. Aorta Normal size aortic root and proximal ascending aorta. IVC Normal IVC dimension with >50% respiratory change of the inferior vena cava. CONCLUSIONS 1. Normal left ventricular cavity size. Moderately decreased left ventricular systolic function. Left ventricular ejection fraction is estimated at 35 %. Global hypokinesis with abnormal septal motion. 2. When compared to study dated 11/05/2019, LV systolic function may have improved somewhat. Dana Pedroza MD (Electronically Signed) Final Date: 05 November 2022 23:58 S
[2022-10-30] MEDS: perflutren protein-a microsphr 0.22 mg/mL SDV 3 mL IV (13:39)
== END 2022-10-30 12:32 | disposition home or self-care (01) ==
LOC: RAD 12:31
PROVIDERS: PCP Family Medicine; Visit Provider Specialist
DX: I42.0 Dilated cardiomyopathy (principal); R06.02 Shortness of breath; I10 Essential (primary) hypertension; I44.7 Left bundle-branch block, unspecified; Z95.810 Presence of automatic (implantable) cardiac defibrillator
CPT/HCPCS: 99214; C8929; Q9956

== ENCOUNTER → 2022-12-30 10:35 | Outpatient (BNVA) | payer OTHER, SELFPAY | PROVIDERS: PCP Family Medicine; Visit Provider Podiatrist Foot & Ankle Surgery | DX: B35.1 Tinea unguium (principal); R60.9 Edema, unspecified; I73.9 Peripheral vascular disease, unspecified | CPT/HCPCS: 11721 ==

== ENCOUNTER → 2023-03-07 08:40 | Outpatient (BNVA) | payer OTHER, SELFPAY | PROVIDERS: PCP Family Medicine; Visit Provider Internal Medicine Cardiovascular Disease | DX: I42.0 Dilated cardiomyopathy (principal); I10 Essential (primary) hypertension; Z95.810 Presence of automatic (implantable) cardiac defibrillator; G47.33 Obstructive sleep apnea (adult) (pediatric); E78.5 Hyperlipidemia, unspecified; Z87.891 Personal history of nicotine dependence | CPT/HCPCS: 99214 ==

== ENCOUNTER → 2023-03-24 08:28 | Outpatient (BNVA) | payer OTHER, SELFPAY | PROVIDERS: PCP Family Medicine; Visit Provider Podiatrist Foot & Ankle Surgery | DX: B35.1 Tinea unguium (principal); R60.9 Edema, unspecified; I73.9 Peripheral vascular disease, unspecified | CPT/HCPCS: 11721 ==

== ENCOUNTER → 2023-06-10 13:33 | Outpatient (BNVA) | payer OTHER, SELFPAY | PROVIDERS: PCP Family Medicine; Visit Provider Podiatrist Foot & Ankle Surgery | DX: B35.1 Tinea unguium (principal); R60.9 Edema, unspecified; I73.9 Peripheral vascular disease, unspecified | CPT/HCPCS: 11721 ==

== ENCOUNTER → 2023-06-18 14:09 | Outpatient (BNVA) | payer OTHER, SELFPAY | PROVIDERS: PCP Family Medicine; Visit Provider Internal Medicine | DX: Z45.02 Encounter for adjustment and management of automatic implantable cardiac defibrillator (principal) | CPT/HCPCS: 93296 ==

== ENCOUNTER → 2023-08-11 10:48 | Outpatient (BNVA) | payer OTHER, SELFPAY | PROVIDERS: PCP Family Medicine; Visit Provider Podiatrist Foot & Ankle Surgery | DX: B35.1 Tinea unguium (principal); R60.9 Edema, unspecified; I73.9 Peripheral vascular disease, unspecified | CPT/HCPCS: 11721 ==

== ENCOUNTER → 2023-09-19 16:07 | Outpatient (BNVA) | payer OTHER, SELFPAY | PROVIDERS: PCP Family Medicine; Visit Provider Internal Medicine Cardiovascular Disease | DX: Z45.02 Encounter for adjustment and management of automatic implantable cardiac defibrillator (principal) | CPT/HCPCS: 93296 ==

== ENCOUNTER → 2023-09-24 12:23 | Outpatient (BNVA) | payer OTHER, SELFPAY | PROVIDERS: PCP Family Medicine; Visit Provider Internal Medicine Cardiovascular Disease | DX: R06.02 Shortness of breath (principal); I10 Essential (primary) hypertension | CPT/HCPCS: 36415; 80048; 83880; 99215 ==

== ENCOUNTER → 2023-10-20 08:38 | Outpatient (BNVA) | payer OTHER, SELFPAY | PROVIDERS: PCP Family Medicine; Visit Provider Podiatrist Foot & Ankle Surgery | DX: B35.1 Tinea unguium (principal); R60.9 Edema, unspecified; I73.9 Peripheral vascular disease, unspecified | CPT/HCPCS: 11721 ==

== ENCOUNTER → 2023-12-22 08:41 | Outpatient (BNVA) | payer OTHER, SELFPAY | PROVIDERS: PCP Family Medicine; Visit Provider Podiatrist Foot & Ankle Surgery | DX: B35.1 Tinea unguium (principal); R60.9 Edema, unspecified; I73.9 Peripheral vascular disease, unspecified; D03.9 Melanoma in situ, unspecified | CPT/HCPCS: 99214 ==

== ENCOUNTER → 2024-02-23 09:45 | Outpatient (BNVA) | payer OTHER, SELFPAY | PROVIDERS: PCP Family Medicine; Visit Provider Podiatrist Foot & Ankle Surgery | DX: B35.1 Tinea unguium (principal); R60.9 Edema, unspecified; I73.9 Peripheral vascular disease, unspecified; D03.9 Melanoma in situ, unspecified | CPT/HCPCS: 11721 ==

== ENCOUNTER → 2024-04-29 09:14 | Outpatient (BNVA) | payer OTHER, SELFPAY | PROVIDERS: PCP Family Medicine; Visit Provider Podiatrist Foot & Ankle Surgery | DX: B35.1 Tinea unguium (principal); R60.9 Edema, unspecified; I73.9 Peripheral vascular disease, unspecified; D03.9 Melanoma in situ, unspecified | CPT/HCPCS: 11721 ==

== ENCOUNTER → 2024-06-16 08:41 | Outpatient (BNVA) | payer OTHER, SELFPAY | PROVIDERS: PCP Family Medicine; Visit Provider Internal Medicine Cardiovascular Disease | DX: Z45.02 Encounter for adjustment and management of automatic implantable cardiac defibrillator (principal) | CPT/HCPCS: 93296 ==

== ENCOUNTER 2024-06-18 09:25 | Outpatient (CLI) | payer OTHER, SELFPAY ==
[2024-06-18 09:44] LABS: Basophils # 0.1 10^3/uL (0.0-0.1); Basophils % 0.6 %; Eosinophils # 0.1 10^3/uL (0.0-0.8); Eosinophils % 1.4 %; Hematocrit 45.8 % (37-53); Lymphocytes # 3.1 10^3/uL (0.8-4.8); Lymphocytes % 36.6 %; Mean Corpuscular HGB Conc 31.7 g/dL (30-55); Mean Corpuscular Hemoglobin 28.1 pg (27-33); Mean Corpuscular Volume 88.8 fl (82-101); Mean Platelet Volume 10.4 fL (7.4-10.4); Monocytes # 0.4 10^3/uL (0.2-0.9); Monocytes % 4.8 %; Neutrophils # 4.82 10^3/uL (1.8-7.7); Neutrophils % 56.4 %; Nucleated Red Blood Cells % 0 %; Platelet Count 161 10^3/cmm (157-399); Red Blood Count 5.16 10^6/uL (3.85-5.65); Red Cell Distribution Width 14.5 % (12.1-15.1); White Blood Count 8.55 10^3/uL (3.29-11.43)
[2024-06-18 10:02] LABS: Albumin Level 4.3 g/dL (3.5-5.2); Anion Gap 15.7 (5-19); Blood Urea Nitrogen 26 mg/dL (8-23); Calcium 9.7 mg/dL (8.5-10.5); Carbon Dioxide 28 mmol/L (22-29); Chloride 97 mmol/L (98-107); Glucose 100 mg/dL (65-115); Phosphorus 2.6 mg/dL (2.5-4.5); Potassium 4.7 mmol/L (3.5-5.1); Sodium 136 mmol/L (136-145)
[2024-06-18 10:09] LABS: Creatinine Urine, Random 27 mg/dL (39-259); Microalbum Creatinine Ratio Ur 37 mg/dL (0-20); Microalbumin Random Urine 1 ug/dL (0-20)
== END 2024-06-18 09:26 | disposition home or self-care (01) ==
LOC: LAB 09:31
PROVIDERS: PCP Family Medicine; Visit Provider Registered Nurse
DX: N18.32 Chronic kidney disease, stage 3b (principal)
CPT/HCPCS: 36415; 80069; 82044; 82310; 83970; 85025

== ENCOUNTER → 2024-07-01 09:39 | Outpatient (BNVA) | payer OTHER, SELFPAY | PROVIDERS: PCP Family Medicine; Visit Provider Podiatrist Foot & Ankle Surgery | DX: I73.9 Peripheral vascular disease, unspecified (principal); B35.1 Tinea unguium; R60.9 Edema, unspecified | CPT/HCPCS: 11721 ==

== ENCOUNTER → 2024-09-02 09:50 | Outpatient (BNVA) | payer OTHER, SELFPAY | PROVIDERS: PCP Family Medicine; Visit Provider Podiatrist Foot & Ankle Surgery | DX: I73.9 Peripheral vascular disease, unspecified (principal); B35.1 Tinea unguium; R60.9 Edema, unspecified | CPT/HCPCS: 11721 ==

== ENCOUNTER → 2024-09-15 10:16 | Outpatient (BNVA) | payer OTHER, SELFPAY | PROVIDERS: PCP Family Medicine; Visit Provider Internal Medicine Cardiovascular Disease | DX: Z45.02 Encounter for adjustment and management of automatic implantable cardiac defibrillator (principal) | CPT/HCPCS: 93296 ==

== ENCOUNTER → 2024-09-22 11:54 | Outpatient (BNVA) | payer OTHER, SELFPAY | PROVIDERS: PCP Family Medicine; Visit Provider Internal Medicine Cardiovascular Disease | DX: R06.09 Other forms of dyspnea (principal); R06.02 Shortness of breath; I50.22 Chronic systolic (congestive) heart failure; I42.0 Dilated cardiomyopathy; E78.5 Hyperlipidemia, unspecified; G47.33 Obstructive sleep apnea (adult) (pediatric); Z79.82 Long term (current) use of aspirin; Z95.810 Presence of automatic (implantable) cardiac defibrillator | CPT/HCPCS: 36415; 80048; 83880; 85025; 99214 ==

== ENCOUNTER → 2024-11-02 09:47 | Outpatient (BNVA) | payer OTHER, SELFPAY | PROVIDERS: PCP Family Medicine; Visit Provider Podiatrist Foot & Ankle Surgery | DX: I73.9 Peripheral vascular disease, unspecified (principal); B35.1 Tinea unguium; R60.9 Edema, unspecified | CPT/HCPCS: 11721 ==

== ENCOUNTER 2024-12-15 06:46 | Outpatient (CLI) | payer OTHER, SELFPAY | END 2024-12-15 06:47 | disposition home or self-care (01) | LOC: RAD 06:46 | PROVIDERS: PCP Family Medicine; Visit Provider Internal Medicine Cardiovascular Disease | DX: Z45.02 Encounter for adjustment and management of automatic implantable cardiac defibrillator (principal); R06.09 Other forms of dyspnea | CPT/HCPCS: 93296; 93306 ==

== ENCOUNTER → 2025-01-06 09:50 | Outpatient (BNVA) | payer OTHER, SELFPAY | PROVIDERS: PCP Family Medicine; Visit Provider Podiatrist Foot & Ankle Surgery | DX: I73.9 Peripheral vascular disease, unspecified (principal); B35.1 Tinea unguium; R60.9 Edema, unspecified | CPT/HCPCS: 11721 ==

== ENCOUNTER 2025-03-17 09:31 | Outpatient (CLI) | payer OTHER, SELFPAY ==
[2025-03-17 10:29] LABS: Creatinine Urine, Random 83 mg/dL (39-259); Microalbum Creatinine Ratio Ur 12 mg/dL (0-20)
[2025-03-17 10:46] LABS: Hematocrit 42.6 % (37-53); Hemoglobin 13.60 g/dL (11.27-16.99); Mean Corpuscular HGB Conc 31.9 g/dL (30-55); Mean Corpuscular Hemoglobin 28.0 pg (27-33); Mean Corpuscular Volume 87.8 fl (82-101); Nucleated Red Blood Cells % 0 %; Platelet Count 146 10^3/cmm (157-399); Red Blood Count 4.85 10^6/uL (3.85-5.65); White Blood Count 8.20 10^3/uL (3.29-11.43)
[2025-03-17 10:58] LABS: Calcium 9.1 mg/dL (8.5-10.5)
[2025-03-17 11:07] LABS: Albumin Level 4.0 g/dL (3.5-5.2); Anion Gap 16.3 (5-19); Blood Urea Nitrogen 28 mg/dL (8-23); Calcium 9.3 mg/dL (8.5-10.5); Carbon Dioxide 27 mmol/L (22-29); Chloride 98 mmol/L (98-107); Glucose 133 mg/dL (65-115); Potassium 4.3 mmol/L (3.5-5.1); Sodium 137 mmol/L (136-145)
== END 2025-03-17 09:32 | disposition home or self-care (01) ==
LOC: LAB 09:34
PROVIDERS: PCP Family Medicine; Visit Provider Registered Nurse
DX: N18.32 Chronic kidney disease, stage 3b (principal)
CPT/HCPCS: 36415; 80069; 82044; 82306; 82310; 83970; 85025

== ENCOUNTER → 2025-04-19 09:41 | Outpatient (BNVA) | payer OTHER, SELFPAY | PROVIDERS: PCP Family Medicine; Visit Provider Nurse Practitioner Family | DX: I50.20 Unspecified systolic (congestive) heart failure (principal); I42.9 Cardiomyopathy, unspecified; E78.5 Hyperlipidemia, unspecified; I44.7 Left bundle-branch block, unspecified; G47.33 Obstructive sleep apnea (adult) (pediatric); I95.9 Hypotension, unspecified; R07.89 Other chest pain; M65.30 Trigger finger, unspecified finger; Z95.810 Presence of automatic (implantable) cardiac defibrillator; Z87.891 Personal history of nicotine dependence | CPT/HCPCS: 99214 ==